=== PATIENT | female | born 1950 | race Caucasian/White ===

== ENCOUNTER 2017-03-14 17:13 | Emergency (ER) | payer OTHER ==
[~2017-03-14] VITALS: Ht 162.6 cm; Wt 67.0 kg
[2017-03-14] MEDS ORDERED: PREDNISONE20 MG PO (17:53)
[2017-03-14 18:45] VITALS: BP 21/68
== END 2017-03-14 19:04 | disposition home or self-care (01) ==
LOC: EME 17:13
DX: T78.40XA Allergy, unspecified, initial encounter (principal); Z88.0 Allergy status to penicillin
CPT/HCPCS: 99281; 99284; J0171; J1100; J1200